=== PATIENT | female | born 1960 | race Two or more races ===

== ENCOUNTER 2017-09-24 20:47 | Inpatient (IN) | payer OTHER ==
[~2017-09-24] VITALS: Ht 162.6 cm; Wt 59.0 kg
[~2017-09-24 20:47] MED LIST: AMARYL PO; COZAAR25 MG PO; INDERAL LA80 MG PO; NABUMETONE500 MG PO; PERCOCET 5-3251 EACH PO
== END 2017-09-25 18:00 | disposition designated cancer center or children's hospital (05) | DRG 282 ==
LOC: ER 20:47 → ICU-2 09-25 12:09
PROC: B246ZZZ Ultrasonography of Right and Left Heart (ICD-10-PCS; principal; 2017-09-25)
DX: I21.4 Non-ST elevation (NSTEMI) myocardial infarction (principal); I10 Essential (primary) hypertension; E11.9 Type 2 diabetes mellitus without complications; E78.4 Other hyperlipidemia